=== PATIENT | female | born 1940 | race African-American/Black ===

== ENCOUNTER 2021-05-23 02:48 | Emergency (ER) | payer OTHER ==
[~2021-05-23] VITALS: Ht 154.9 cm; Wt 98.0 kg
[2021-05-23 02:59] VITALS: BP 162/75; TEMP 98
[2021-05-23 03:23] LABS: PLATELET COUNT 160 K/uL (152-353)
[2021-05-23 03:31] LABS: POTASSIUM 4.8 mmol/L (3.6-5.2)
[2021-05-23] MEDS ORDERED: LIPITOR20 MG PO (04:41)
[2021-05-23] MEDS ORDERED: CLOP75TA2 PO (04:42)
[2021-05-23] MEDS ORDERED: LISI20TA11 PO (04:43)
[2021-05-23] MEDS ORDERED: METO100T37 PO (04:44)
[2021-05-23] MEDS ORDERED: SPIRONOLACT25 MG PO (04:50)
[2021-05-23] MEDS ORDERED: TRAZ50TA36 PO (04:52)
[2021-05-23] MEDS ORDERED: MAGN400T4 PO (04:53)
[2021-05-23] MEDS ORDERED: HALO5INJ3 IM (04:54)
== END 2021-05-23 04:06 | disposition other institution (70) ==
LOC: ED 02:48
PROVIDERS: Family Medicine
DX: R46.89 Other symptoms and signs involving appearance and behavior (principal); F32.89 Other specified depressive episodes; Z11.52 Encounter for screening for COVID-19; Z04.6 Encounter for general psychiatric examination, requested by authority
CPT/HCPCS: 36415; 80053; 81000; 85027; 87635; 93005; 99283; U0003